=== PATIENT | male | born 1970 | race Caucasian/White ===

== ENCOUNTER 2024-07-27 07:38 | Inpatient (IN) | payer OTHER ==
[~2024-07-27] VITALS: Ht 182.9 cm; Wt 112.0 kg
[2024-07-27 09:06] LABS: BASOPHILS ABSOLUTE AUTO 0.04 K/mm3 (0.00-0.23); BASOPHILS PERCENT AUTO 0 % (0-2); EOSINOPHILS ABSOLUTE AUTO 0.08 K/mm3 (0.00-0.68); EOSINOPHILS PERCENT AUTO 1 % (0-6); Hematocrit 36.6 % (37.0-53.0); Hemoglobin 11.8 g/dL (13.5-17.5); IMMATURE GRAN ABSOLUTE AUTO 0.14 K/mm3 (0.00-0.10); IMMATURE GRAN PERCENT AUTO 1 % (0-1); LYMPHOCYTES ABSOLUTE AUTO 1.06 K/mm3 (0.84-5.20); LYMPHOCYTES PERCENT AUTO 7 % (21-46); MONOCYTES ABSOLUTE AUTO 1.77 K/mm3 (0.16-1.47); MONOCYTES PERCENT AUTO 11 % (4-13); Mean Corpuscular HGB 29.1 pg (26.0-34.0); Mean Corpuscular HGB Conc 32.2 g/dL (31.5-36.5); Mean Corpuscular Volume 90 fL (80-100); Mean Platelet Volume 8.8 fL (9.1-12.4); NEUTROPHILS ABSOLUTE AUTO 12.95 K/mm3 (1.96-9.15); NEUTROPHILS PERCENT AUTO 81 % (41-73); Platelet Count 491 K/mm3 (150-400); RDW Standard Deviation 46.4 fL (35.1-46.3); Red Blood Cell Count 4.05 M/mm3 (4.30-5.90); White Blood Cell Count 16.04 K/mm3 (4.00-11.30)
[2024-07-27 09:26] LABS: Albumin, Blood 2.2 g/dL (3.4-5.0); Albumin/Globulin Ratio 0.4 (0.8-1.8); Bilirubin, Total 0.6 mg/dL (0.1-1.0); Bun/Creatinine Ratio 19.1 (12.0-20.0); Calcium, Blood 9.7 mg/dL (8.5-10.1); Creatinine, Blood 1.15 mg/dL (0.60-1.20); Globulin, Blood 5.8 g/dL (2.2-4.0); Potassium, Blood 3.9 mmol/L (3.5-5.5)
[2024-07-27] MEDS ORDERED: Ondansetron HCl 2 MG / ML 2ML Vial IV ONE (11:20)
[2024-07-27 11:25] LABS: International Normalized Ratio 1.22; Prothrombin Time Results 12.9 Sec (9.7-11.5)
[2024-07-27] MEDS ORDERED: Magnesium Hydroxide Conc 10 ML UDC PO PRN (11:25)
[2024-07-27] MEDS ORDERED: TraZODone HCl 50 MG Tab PO PRN (11:25)
[2024-07-27] MEDS ORDERED: Ondansetron 4 MG TAB PO PRN (11:25)
[2024-07-27] MEDS ORDERED: NS 1,000 ML IV SCH (11:25)
[2024-07-27] MEDS ORDERED: Bisacodyl 10 MG Supp PR PRN (11:30)
[2024-07-27] MEDS ORDERED: Ipratropium/Albuterol SulF 2.5-0.5MG/3 ML Amp INH PRN (11:35)
[2024-07-27] MEDS ORDERED: Mometasone/Formoterol MDI 200/5 mcg 13 GM INH SCH (11:45)
[2024-07-27] MEDS ORDERED: Azithromycin 250 MG Tab PO SCH (12:00)
[2024-07-27] MEDS ORDERED: PredniSONE 20 MG Tab PO SCH (12:00)
[2024-07-27] MEDS ORDERED: CefTRIAXone Sodium 2,000 MG in NS 100 ML IV SCH (12:00)
[2024-07-27] MEDS ORDERED: Dose Adjust by Pharmacy XX STA ×2 (12:07→19:01)
[2024-07-27] MEDS ORDERED: Heparin Sodium 5000 Units/ML 1ML MDV IV ONE ×2 (12:10→19:00)
[2024-07-27] MEDS ORDERED: Heparin Sodium,Porcine/0.5 NS 500 ML IV SCH (12:10)
[2024-07-27 13:29] VITALS: BP 150/85
[2024-07-27 13:37] LABS: Influenza A, PCR NEGATIVE (NEGATIVE); Influenza B, PCR NEGATIVE (NEGATIVE); Resp Syncytial Virus, PCR NEGATIVE (NEGATIVE); SARS-Cov-2 (COVID-19) PCR, MMC NEGATIVE (NEGATIVE)
--- NOTE | 2024-07-27 14:05 | NUR ---
arrival to pcu patient arrived from [facility] to pcu at 1320 and transfered to pcu bed indpendently. vital signs stable. tele sinus rhythm 90s. heparin drip at 18units/kg/hr. patient is alert and oriented x4. neuro is intact. perrla. patient is able to make needs known and uses call light appropriately. patient denies chest pain/pressure or pain. patient reports shortness of breath with exertion. patient upper lobes bilaterally are clear and lower lobes are dim fine crackles. on 4l nc with spo2 >90%. see admit shift assessment for further detials. patient is independent in the room from bed to chair, and this rn informed the patient to call before getting up to go to the bathroom. plan to continue heparin, oxygen, and awaiting lab tests results.
[2024-07-27 16:18] VITALS: BP 145/102
--- NOTE | 2024-07-27 17:29 | NUR ---
shift summary patient vitals remain stable. no acute changes since arriving.
[2024-07-27 18:21] LABS: Adenovirus Not Detected (NOT DETECT); Bordetella pertussis Not Detected (NOT DETECT); Chlamydophila pneumoniae Not Detected (NOT DETECT); Coronavirus 229E Not Detected (NOT DETECT); Coronavirus HKU1 Not Detected (NOT DETECT); Coronavirus NL63 Not Detected (NOT DETECT); Coronavirus OC43 Not Detected (NOT DETECT); Human Metapneumovirus Not Detected (NOT DETECT); Human Rhinovirus/Enterovirus Not Detected (NOT DETECT); Influenza A/2009-H1 Not Detected (NOT DETECT); Influenza A/H1 Not Detected (NOT DETECT); Influenza A/H3 Not Detected (NOT DETECT); Influenza B Not Detected (NOT DETECT); Mycoplasma pneumoniae Not Detected (NOT DETECT); Parainfluenza Virus 1 Not Detected (NOT DETECT); Parainfluenza Virus 2 Not Detected (NOT DETECT); Parainfluenza Virus 3 Not Detected (NOT DETECT); Parainfluenza Virus 4 Not Detected (NOT DETECT); Respiratory Syncytial Virus Not Detected (NOT DETECT); SARS-Cov-2 (COVID-19), BioFire Not Detected (NOT DETECT)
[2024-07-27 20:32] VITALS: BP 130/81
[2024-07-27] MEDS ORDERED: Famotidine 20 MG Tab PO SCH (21:00)
[2024-07-27] MEDS ORDERED: Lactobacil 2-S.Thermo-Bifido 1 1 Cap PO SCH (21:00)
[2024-07-27 23:44] VITALS: BP 149/96
[2024-07-28 01:56] LABS: BASOPHILS ABSOLUTE AUTO 0.03 K/mm3 (0.00-0.23); BASOPHILS PERCENT AUTO 0 % (0-2); EOSINOPHILS PERCENT AUTO 0 % (0-6); Hematocrit 34.5 % (37.0-53.0); Hemoglobin 11.2 g/dL (13.5-17.5); IMMATURE GRAN ABSOLUTE AUTO 0.19 K/mm3 (0.00-0.10); IMMATURE GRAN PERCENT AUTO 1 % (0-1); LYMPHOCYTES ABSOLUTE AUTO 1.19 K/mm3 (0.84-5.20); LYMPHOCYTES PERCENT AUTO 8 % (21-46); MONOCYTES PERCENT AUTO 6 % (4-13); Mean Corpuscular HGB 29.8 pg (26.0-34.0); Mean Corpuscular HGB Conc 32.5 g/dL (31.5-36.5); Mean Corpuscular Volume 92 fL (80-100); Mean Platelet Volume 9.1 fL (9.1-12.4); NEUTROPHILS ABSOLUTE AUTO 13.38 K/mm3 (1.96-9.15); NEUTROPHILS PERCENT AUTO 85 % (41-73); Platelet Count 521 K/mm3 (150-400); RDW Coefficient Variation 14.2 % (11.7-14.2); RDW Standard Deviation 47.9 fL (35.1-46.3); Red Blood Cell Count 3.76 M/mm3 (4.30-5.90); White Blood Cell Count 15.69 K/mm3 (4.00-11.30)
[2024-07-28 01:58] LABS: Alanine Aminotransfer (ALT/SGP 25 U/L (12-78); Albumin, Blood 2.1 g/dL (3.4-5.0); Albumin/Globulin Ratio 0.4 (0.8-1.8); Alk Phos 88 U/L (50-136); Anion Gap 10 mmol/L (3-11); Aspartate Aminotrans (AST/SGOT 27 U/L (12-37); Bilirubin, Total 0.3 mg/dL (0.1-1.0); Blood Urea Nitrogen 25 mg/dL (8-24); Bun/Creatinine Ratio 23.4 (12.0-20.0); CHOL/HDL RATIO 4.5; CO2, Blood 26 mmol/L (21-32); Calcium, Blood 9.1 mg/dL (8.5-10.1); Chloride, Blood 99 mmol/L (98-108); Cholesterol 157 mg/dL (50-200); Creatinine, Blood 1.07 mg/dL (0.60-1.20); Globulin, Blood 5.9 g/dL (2.2-4.0); Glomerular Filtration Rate 82 (60-); Glucose, Blood 112 mg/dL (70-99); HDL Cholesterol 35 mg/dL (>39); LDL/HDL RATIO 2.8; Low Density Lipoprotein Chol 97 mg/dL (0-110); Magnesium, Blood 1.9 mg/dL (1.6-2.4); Potassium, Blood 4.8 mmol/L (3.5-5.5); Sodium, Blood 130 mmol/L (136-145); Triglycerides 125 mg/dL (30-160); Very Low Density Lipoprot Chol 25 mg/dL (6-32)
[2024-07-28] MEDS ORDERED: Dose Adjust by Pharmacy XX STA ×2 (02:32→09:36)
[2024-07-28] MEDS ORDERED: Heparin Sodium 5000 Units/ML 1ML MDV IV ONE (02:45)
--- NOTE | 2024-07-28 02:47 | NUR ---
PHYSICIAN COMMUNICATION. PATIENT O2 WAS DESATING TO THE 60S WHILE SLEEPING DESPITE INCREASING O2 TO 8L NC. NOTIFIED TRIM MECHANIC RESIDENT AND ASKED IF THE PATIENT COULD BENEFIT FROM CPAP. PHYSICAN AGREED AND ORDER PLACED.
[2024-07-28 03:00] VITALS: BP 141/99
--- NOTE | 2024-07-28 06:20 | NUR ---
SHIFT SUMMARY. PATIENT A&O X4. PATIENT STATED HAVING BACK DISCOMFORT THAT WAS RELIEVED BY REPOSITIONING. WHILE SLEEPING PATIENT CONTINUED TO DESAT TO THE 60'S, O2 TITRATED BETWEEN 6-8L O2 VIA HIGH FLOW NC, RESIDENT NOTIFIED, CPAP ORDERED.
[2024-07-28 06:55] VITALS: BP 167/106
[2024-07-28] MEDS ORDERED: Ipratropium/Albuterol SulF 2.5-0.5MG/3 ML Amp INH SCH (07:05)
[2024-07-28] MEDS ORDERED: Albuterol 2.5 MG/3 ML VIAL INH PRN (07:05)
--- NOTE | 2024-07-28 07:09 | NUR ---
Received report from NOC RN. Patient resting in bed stating cold in room which it was. Gave warnm blankets. He has 2 IV's ti R arm and has Heparin infusing at 24 units/kg/min. He speech is clear and he understands why he is here. He is also on CPAP and 15L bleeed in and sats 100% and denies current SOB. Has not current needs. MAEW. Denies any current pain and wants to continue to rest. He is on Isolation r/o TB.
[2024-07-28] MEDS ORDERED: Furosemide 20 MG Tab PO ONE (08:00)
[2024-07-28] MEDS ORDERED: Losartan Potassium 50 MG Tab PO SCH (09:00)
[2024-07-28] MEDS ORDERED: Losartan Potassium 25 MG Tab PO SCH (09:00)
[2024-07-28] MEDS ORDERED: Loratadine 10 MG Tab PO SCH (09:00)
--- NOTE | 2024-07-28 09:00 | NUR ---
Patient awake and sitting at bedside with HF NC at 10 L O2 and sats >90%. He s awake and energeticand wants to talk, but can tell he is alittle SOB when speaking. He tolerated am meds and is starting breakfast. He states feels chwst spasms to right side of chest under arm pits when deep breathing. Heparin remains at 24 units/kg/min.
[2024-07-28] MEDS ORDERED: Apixaban 5 MG Tab PO SCH (10:00)
--- NOTE | 2024-07-28 11:10 | NUR ---
Patient sitting at bedside talking with staff. Dr Burger updated about patient and willsee him soon. He denies any pain or SOB without exertion or talking with is visible when that happens. He continues to tolerate meds well. VSS. He is been reduced to 8L O2 via HF NC umidified and sats >90%. He seem very energetic and talkative.
[2024-07-28 12:50] VITALS: BP 154/112
--- NOTE | 2024-07-28 13:30 | NUR ---
Patient up walking in room with staff. Reduced O2 to 6L and sats low 90%'s. Dr farrell has been by and has ordered home O2 eval and am waiting to see if we can reduce O2 prior to eval. She is planning on sending home. Patient states some back pain and when return to verify he states OK. VSS RT coming to O2 eval as wants done today. He continues to state minimal SOB while up.
--- NOTE | 2024-07-28 15:30 | NUR ---
Patient is cooperative with care. He is on 4L via HF NC humidified and sats >90% . He is very anxious and talks so fast he gets confused easily which is Normal when he gets excited per sister. Went in room and asked for him to rest for a little bit and not to overexert himself. He is very anxuous about meeting requirments to going home. He lives in a shed that was converted into a little tiny home in the back of [facility] property and lives very simple life. VSS. He has been up independent in room and is doing well with sats 88-92.
[2024-07-28] MEDS ORDERED: MethylPREDNISolone Sod Succ 125 MG Vial IV SCH (16:00)
[2024-07-28 20:25] VITALS: BP 143/99
[2024-07-28] MEDS ORDERED: Montelukast Sodium 10 MG Tab PO SCH (21:00)
[2024-07-29 00:21] VITALS: BP 148/96
[2024-07-29 04:32] LABS: Hematocrit 35.9 % (37.0-53.0); Hemoglobin 11.7 g/dL (13.5-17.5); Mean Corpuscular HGB 29.8 pg (26.0-34.0); Mean Corpuscular HGB Conc 32.6 g/dL (31.5-36.5); Mean Corpuscular Volume 92 fL (80-100); Mean Platelet Volume 9.5 fL (9.1-12.4); Platelet Count 612 K/mm3 (150-400); RDW Coefficient Variation 14.3 % (11.7-14.2); RDW Standard Deviation 47.8 fL (35.1-46.3); Red Blood Cell Count 3.92 M/mm3 (4.30-5.90)
[2024-07-29 04:34] VITALS: BP 160/93
[2024-07-29 04:50] LABS: Bun/Creatinine Ratio 25.6 (12.0-20.0); Calcium, Blood 9.7 mg/dL (8.5-10.1); Creatinine, Blood 1.21 mg/dL (0.60-1.20); Magnesium, Blood 2.1 mg/dL (1.6-2.4); Potassium, Blood 4.8 mmol/L (3.5-5.5)
--- NOTE | 2024-07-29 05:55 | NUR ---
PT COMPLIANT WITH CARE, UNABLE TO SLEEP, ABLE TO BE REDIRECTED BUT OVERLY EXCITABLE AT TIMES. PT DOES NOT WANT TO SLEEP, VSS, RRR AND UNLABORED, NO CURRENT CONCERNS, STILL ON O2 NOT ABLE TO WEAN, BP RUNS ELEVATED BUT AGAIN PT STRUGGLES WITH SITTING STILL AND RESTING. PLEASANT OVERALL.
[2024-07-29] MEDS ORDERED: HydrALAZINE HCl 20 MG / ML 1ML Vial IV PRN (07:40)
--- NOTE | 2024-07-29 07:46 | NUR ---
MULU NOTE: THIS RN TO ASSUME CARE OF ZOHRA. PATIENT IS UP AND SITTING AT THE EDGE OF THE BED. VITAL SIGNS TAKEN & PATIENT STABLE. PATIENT VOICED CONCERNS ABOUT HIS POSSIBLE DISCHARGE TODAY REGARDING BACK PAIN. CAME UP WITH A PLAN THAT WE WILL ADDRESS THIS WITH THE DOCTOR WHEN THEY ROUND AND IN THE MEAN TIME WILL BE USING A HEATING PAD. KELSEY HAS CALL LIGHT WITHIN REACH, BED IN LOWEST POSITION AND STATING NOTHNG IS NEEDED AT THIS TIME.
[2024-07-29 07:48] VITALS: BP 125/87
[2024-07-29] MEDS ORDERED: Losartan Potassium 50 MG Tab PO SCH (09:00)
--- NOTE | 2024-07-29 09:30 | NUR ---
ROUNDED: MD JOYNER ROUNDED AND PATIENT AWARE HE WILL BE STAYING FOR A COUPLE MORE DAYS TO GET TREATEMENT AFTER THIS EXACURBATION OF HIS LUNG DISEASE.
--- NOTE | 2024-07-29 10:23 | NUR ---
ROUNDED: ELECTRIC TOOL REPAIRER ROUNDED AND SPOKE WITH PATIENT & FATHER AT [facility]. PATIENT AWARE HE WILL BE DISCHARGE WITHIN A COUPLE OF DAYS AND TO CONTINUE TREATMENT WITH ANTIBIOTICS AND USING THE INCENETIVE SPIROEMTER AND FLUTTER VALVE. PATIENT DROPPED DOWN TO 3 LITERS VIA HEATED HIGH FLOW AND VERBAL OKAY TO KEEP SATURATIONS BETWEEN 89-92% ON 3 LITERS.
[2024-07-29 11:16] VITALS: BP 161/100
--- NOTE | 2024-07-29 11:42 | NUR ---
MD CALLED: THIS RN CALLED MD REGARDING PATIENTS BACK PAIN AND FORGETTING TO MENTION IT WHEN MD ROUNDED. VERBAL ORDERS WERE PLACED FOR PAIN MEDICATIONS.
[2024-07-29] MEDS ORDERED: OxyCODONE HCL 5 MG TAB PO PRN (11:45)
[2024-07-29 15:46] VITALS: BP 146/86
--- NOTE | 2024-07-29 17:41 | NUR ---
SHIFT SUMMARY: PATIENT IS ALERT AND ORIENTED X4 & COOPERATIVE WITH HIS CARE, IS ABLE TO MAKE NEEDS KNOWN & USES CALL LIGHT APPROPRIATELY. PATIENT SATTING >89-92% ON 3 LITERS VIA HEATED HIGH FLOW. PATIENT ON TELE SHOWING SINUS RYTHM TO SINUS TACH 70-120 AT TIMES. PATIENT WAS VERY INVOLVED IN HIS CARE TODAY AND USED INCENTIVE SPIROEMTER AND FLUTTER VALVE REGULARLY. RECEIVIED IV ANTIBIOTICS AND FAMILY CAME TO BEDSIDE TO VISIT. PATIENT AWARE HE WILL DISCHARGE WITHIN A COUPLE DAYS HIS OXYGEN DEMAND IS HIGH AT NIGHT WHILE USING THE CPAP MACHINE. PATIENT WAS MEDICATED PER EMAR WITH OXY FOR BACK PAIN. DID NOT GET MUCH REST THROUGHOUT SHIFT BUT DID STATE "IT HAS BEEN 31HRS SINCE HE'S SLEPT". PATIENT IS SITTING AT THE EDGE OF THE BED EATING DINNER, HAS CALL LIGHT WITHIN REACH, BED IN LOWEST POSITION AND STATING NOTHING IS NEEDED AT THIS TIME.
[2024-07-29 21:30] VITALS: BP 145/82
[2024-07-30 00:56] VITALS: BP 137/86
[2024-07-30 04:51] LABS: Hematocrit 35.5 % (37.0-53.0); Hemoglobin 11.7 g/dL (13.5-17.5); Mean Corpuscular HGB 30.4 pg (26.0-34.0); Mean Corpuscular Volume 92 fL (80-100); Mean Platelet Volume 9.3 fL (9.1-12.4); Platelet Count 604 K/mm3 (150-400); RDW Coefficient Variation 14.5 % (11.7-14.2); RDW Standard Deviation 49.1 fL (35.1-46.3); Red Blood Cell Count 3.85 M/mm3 (4.30-5.90); White Blood Cell Count 13.75 K/mm3 (4.00-11.30)
[2024-07-30 05:18] LABS: Albumin, Blood 2.5 g/dL (3.4-5.0); Albumin/Globulin Ratio 0.4 (0.8-1.8); Bilirubin, Total 0.4 mg/dL (0.1-1.0); Bun/Creatinine Ratio 31.5 (12.0-20.0); Calcium, Blood 9.7 mg/dL (8.5-10.1); Creatinine, Blood 1.08 mg/dL (0.60-1.20); Magnesium, Blood 2.3 mg/dL (1.6-2.4); Phosphorus, Blood 3.7 mg/dL (2.5-4.9); Potassium, Blood 4.6 mmol/L (3.5-5.5); Total Protein, Blood 8.5 g/dL (6.4-8.2)
[2024-07-30 05:27] VITALS: BP 146/66
--- NOTE | 2024-07-30 06:30 | NUR ---
pt is hemodynamically stable, denies pain, chest pain, or SOB when asked. ad orly in room, no concerns with this pt. per another RN pt was agitated and upset, unsure why. when this RN (myself) is in room, pt is very pleasant and calm, redirectable if needed, but able to express needs and feelings. HR WDL, blood pressure in appropriate range. voiding well, independent with personal hygeine, pleasant towards myself and DRY PAN OPERATOR, x1 episode of becoming upset and not being able to find urinal, this RN sat with patient for approximately 15 minutes providing active listening and emotional support. since then, pt was able to relax as this RN assumes he is overwhelmed with diagnosis/current situation, and that is appropriate as he is not violent and redirectable. pt naturally has an energetic attitude which was much improved since last shift prior to this one. pt apologized for becoming frustrated and has been okay since then. will relay to oncoming shift, 3L o2 via nc, compliant w/ CPAP for majority of night. no concerns whatsoever at this time.
--- NOTE | 2024-07-30 07:17 | NUR ---
ASSUMPTION NOTE: THIS RN TO ASSUME CARE OF PATIENT. PATIENT IS GETTING A BREATHING TREATMENT FROM RT AND WAS FIXING HIS BED. PATIENT DENIED ANY CHEST PAIN/PRESSURE OR GETTING TOO MUCH REST LAST NIGHT. HAS CALL LIGHT WITHIN REACH AND SITTING AT THE EDGE OF THE BED, STATING NOTHING IS NEEDED AT THIS TIME.
[2024-07-30 07:52] VITALS: BP 151/83
[2024-07-30 08:54] LABS: QUANTIFERON NIL 0.04 IU/mL; QUANTIFERON PLUS TB2 MINUS NIL 0.03 IU/mL (<=0.34)
--- NOTE | 2024-07-30 09:13 | NUR ---
MD ROUNDED: MD AT BEDSIDE AND TALKED WITH PATIENT. PATIENT VOICED CONCERNS REGARDING HIS LIVING SITUATION AND NEEDING TO STAY WITH HIS SISTER. MD TO CALL AND NOTIFY SISTER HE WILL POSSIBLY BE GOING HOME TODAY OR TOMORROW. PATIENT WAS EMOTIONAL BUT WAS OKAY WITH MD NOTIIFYING SISTER.
--- NOTE | 2024-07-30 09:31 | NUR ---
MD ROUNDED: [facility] ROUNDED. PLAN WILL BE TO KEEP PATIENT, ALLOW MORE TIME FOR STEROIDS TO WORK. PATIENT TO BECOME MEDICAL WITH TELE STATUS. MD WANTING A REFERRAL TO [facility] TO FOLLOW UP OUTPATIENT.
[2024-07-30 13:07] VITALS: BP 145/115
--- NOTE | 2024-07-30 13:32 | NUR ---
UPDATE: PATIENT WAS ABLE TO TAKE A SMALL NAP THROUGHOUT SHIFT AND WAS COMPLIANT WITH THE CPAP MACHINE WITH A BLEED IN OF 3 LITERS. SATTING BETWEEN 89-94% WHILE ASLEEP. PATIENT ANTIBIOTICS RUNNING VIA IV AND PATIENT SITTING AT THE EDGE OF THE BED EATING LUNCH. HAS CALL LIGHT WITHIN REACH, BED IN LOWEST POSITION & STATING NOTHING IS NEEDED AT THIS TIME.
[2024-07-30 14:52] LABS: ANTI-NUCLEAR AB ANA,IGG ELISA None Detected (None Detected)
--- NOTE | 2024-07-30 16:34 | NUR ---
SHIFT SUMMARY: PATIENT IS ALERT AND ORIENTED X4 & COOPERATIVE WITH HIS CARE, IS ABLE TO MAKE NEEDS KNOWN & USES CALL LIGHT APPROPRIATELY. PATIET IS MEDICAL WITH TELE STATUS NOW. ON TELE SHOWING SINUS RYTHM-SINUS TACH 90-110. SATTING 89-92% ON 3 LITERS VIA HEATED HIGH FLOW. CONTINUES TO WORK WITH THE INCENTIVE SPIROMETER & FLUTTER VALVE REGULARLY. PATIENT CONTINUES TO GET IV ANTIBIOTICS AND STEROIDS. AWARE THAT PLAN WILL BE TO DISCHARGE TOMORROW. AWAITING A BED AND AWARE HE WILL POSSIBLY MOVE LATER TONIGHT. PATIENT WAS ABLE TO GET SOME REST TODAY AND WORE THE CPAP, SEE PREVIOUS NOTES FOR MORE INFORMATION. PATIENT HAS CALL LIGHT WITHIN REACH, BED IN LOWEST POSITION AND STATING NOTHING IS NEEDED AT THIS TIME.
[2024-07-30 16:56] VITALS: BP 145/82
[2024-07-30 19:58] VITALS: BP 147/106
[2024-07-30 23:11] LABS: MYELOPEROXIDASE (MPO) AB,IGG 0 AU/mL (0-19); SERINE PROTEINASE 3 PR3 AB,IGG 1 AU/mL (0-19)
[2024-07-31] VITALS (11 sets, daily range): BP systolic 133–190; BP diastolic 73–100
[2024-07-31 04:14] LABS: Hematocrit 33.3 % (37.0-53.0); Hemoglobin 10.7 g/dL (13.5-17.5); Mean Corpuscular HGB 29.3 pg (26.0-34.0); Mean Corpuscular HGB Conc 32.1 g/dL (31.5-36.5); Mean Corpuscular Volume 91 fL (80-100); Mean Platelet Volume 9.2 fL (9.1-12.4); Platelet Count 548 K/mm3 (150-400); RDW Coefficient Variation 14.4 % (11.7-14.2); RDW Standard Deviation 48.6 fL (35.1-46.3); Red Blood Cell Count 3.65 M/mm3 (4.30-5.90); White Blood Cell Count 12.08 K/mm3 (4.00-11.30)
[2024-07-31 04:46] LABS: Bun/Creatinine Ratio 29.7 (12.0-20.0); Calcium, Blood 8.9 mg/dL (8.5-10.1); Creatinine, Blood 1.11 mg/dL (0.60-1.20); Magnesium, Blood 2.3 mg/dL (1.6-2.4); Phosphorus, Blood 3.9 mg/dL (2.5-4.9); Potassium, Blood 4.5 mmol/L (3.5-5.5)
--- NOTE | 2024-07-31 05:41 | NUR ---
SHIFT SUMMARY PT REMAINS A&OX4. BPs ELEVATED THROUGHOUT NIGHT, 20 HYDRALAZINE GIVEN WITH GOOD EFFECT FOR SBP 190s. REMAINS ON TELE NSR 80s. PT USING CPAP NOC WITH 3L BLEED IN. <92% ON 3L NC. PT IND IN ROOM HOWEVER FORGETS TO UTILIZE CALL LIGHT. PT WAS FOUND TO FREQUENTLY LEAVE ROOM AND APPROACH OTHER STAFF TO ASK FOR HIS PRIMARY NURSE. WHEN OTHER NURSE REQUESTED THAT PT RETURN TO ROOM AND USE CALL LIGHT FOR ASSISTANCE PT TOOK OFFENSE TO THIS AND STATED THAT HE FELT THREATENED, THIS NURSE AND CHARGE NURSE TALKED TO PT AND RESOLVED ISSUE AND PT WAS UNDERSTANDING MOVING FORWARD. HOWEVER MULTIPLE FEMALE STAFF DID REPORT TO THIS NURSE THAT THE PT SAID INNAPROPRIATE THINGS TO THEM COMMENTING ON THEIR APPEARANCES AND WHAT NOT. PT VERY PLEASANT WITH THIS NURSE AND DID NOT EXPERIENCE ANY OF THIS. CHARGE NURSE AWARE OF SITUATION. PT SEEMS TO HAVE PERIODS OF MANIC EPISODES WHERE HE HAS MULTIPLE FLIGHTS OF IDEAS AND SWITCHES PERSONALITIES QUICKLY IN CONVERSATIONS. NO FURTHER QUESTIONS OR CONCERNS AT THIS TIME. WILL CONTINUE WITH PLAN OF CARE.
[2024-07-31] MEDS ORDERED: MethylPREDNISolone Sod Succ 125 MG Vial IV SCH (09:00)
--- NOTE | 2024-07-31 09:15 | NUR ---
ASSUMPTION OF CARE PATIENT IS AOX4 ABLE TO MAKE NEEDS KNOWN HE IS VERY TALKATVIE AND THOUGHTS ARE ALL OVER BUT REDIRECTABLE. HE DENIES PAIN, SOB, NUASEA, OR VOMITTING. HE IS INDEPENDENT IN THE ROOM AND TOLERATING HIS BREAKFAST SITTING AT BEDSIDE. HIS O2 SAT ARE GREATER THAN 92% ON 3L NC. THE HOSPITALIST HAS COME BY AND SEEN HIM AND PLANS TO DC TODAY AFTER HOME O2 STUDY.
[2024-07-31] MEDS ORDERED: ELIQUIS5 M2 PO (13:40)
[2024-07-31] MEDS ORDERED: LOSARTAN POTAS100 M1 PO (13:41)
[2024-07-31] MEDS ORDERED: PROAIR RESPICL90 MCG INH (13:41)
[2024-07-31] MEDS ORDERED: AIRDUO RESPICL1 EAC4 INH (13:42)
[2024-07-31] MEDS ORDERED: AMOCLA875 PO (13:45)
[2024-07-31] MEDS ORDERED: PRED20 PO (13:48)
--- NOTE | 2024-07-31 16:17 | NUR ---
SHIFT SUMMARY DISCHARGE PATIENT A0X4 ABLE TO MAKE NEEDS KNOWN. HAS DISCAHRGE ORDERS. HIS OXYGEN WAS DELIVERED AND HE UNDERSTANDS HOW TO USE IT AND IF HE HAS QUESTIONS WHO TO CALL. HE AGREES ACCEPTS AND UNDERSTANDS ALL HIS DISCHARGE INSTRUCTIONS AND FOLLOWUP AND MEDICATION INFORMATION. HE HAS NO FURTHER QUESTIONS. HE HAS A FAMILY MEMEBER GIVING HIM A RIDE HOME.
== END 2024-07-31 17:12 | disposition home or self-care (01) | DRG 196 ==
LOC: ER 07:38 → ERHOLD 11:23 → PCU 11:23 → ER 12:12 → ERHOLD 12:12 → PCU 13:39
PROVIDERS: Student in an Organized Health Care Education/Training Program; ADMIT Hospitalist
PROC: 5A09357 Assistance with Respiratory Ventilation, Less than 24 Consecutive Hours, Continuous Positive Airway Pressure (ICD-10-PCS; principal; 2024-07-29)
PROC: 5A0935A Assistance with Respiratory Ventilation, Less than 24 Consecutive Hours, High Flow/Velocity Cannula (ICD-10-PCS; 2024-07-30)
DX: J84.9 Interstitial pulmonary disease, unspecified (principal); I26.99 Other pulmonary embolism without acute cor pulmonale; J96.01 Acute respiratory failure with hypoxia; R04.2 Hemoptysis; J47.0 Bronchiectasis with acute lower respiratory infection; I10 Essential (primary) hypertension; F12.90 Cannabis use, unspecified, uncomplicated; Z87.891 Personal history of nicotine dependence
CPT/HCPCS: 0202U; 0241U; 36415; 71046; 71260; 80048; 80053; 80061; 83516; 83735; 83880; 84100; 84484; 85025; 85027; 85520; 85610; 85651; 85730; 86038; 86140; 86430; 86480; 93005; 93010; 93306; 94640; 94660; 94664; 94761; 94762; 99285-25; A9270; J0360; J0696; J1644; J2405; J2919; J7030; J7512; Q9967